=== PATIENT | female | born 1995 | race Caucasian/White ===

== ENCOUNTER 2018-11-07 22:21 | Emergency (ER) | payer MEDICAID ==
[~2018-11-07] VITALS: Ht 142.2 cm; Wt 54.5 kg
[~2018-11-07 22:21] MED LIST: ALBUTEROL SUL0.083 % IN; AMOXICILLIN500 MG OR; AMOXICILLIN500 MG PO; AUGMENTIN875TAB PO; BIRTH CONTROL PILLS; CETIRIZINE10 MG PO; DUONEB IN; FLOVENT HFA44 MCG IN; HOME NEBULIZER; MACRODANTIN100 MG OR; MEDDOSEPAK PO; MOTRIN400 MG OR; NAPROSYN500 MG PO; NO HOME MEDS; NYSTATIN100000 M3 TOP; PREDNISONE10 MG PO; PRENATA3 OR; PRENATABS OR; PROAIR HFA IN; SINGULAIR10 MG PO; SYMBICORT1 AE1 IN; TAM75CAP OR; TYLENOL325 MG OR; ULTRAM50 MG OR
[2018-11-07] MEDS ORDERED: PRE-NATAL PO (22:34)
[2018-11-07] MEDS ORDERED: AMOXICILLIN500 MG PO (23:08)
[2018-11-07 23:15] VITALS: BP 108/66
== END 2018-11-07 23:15 | disposition home or self-care (01) ==
LOC: ED 22:21
DX: O98.513 Other viral diseases complicating pregnancy, third trimester (principal); Z3A.30 30 weeks gestation of pregnancy; J02.0 Streptococcal pharyngitis; R05 Cough; M79.10 Myalgia, unspecified site; R09.81 Nasal congestion; R09.89 Other specified symptoms and signs involving the circulatory and respiratory systems

== ENCOUNTER 2019-02-23 07:34 | Emergency (ER) | payer MEDICAID ==
[~2019-02-23] VITALS: Ht 142.2 cm; Wt 45.0 kg
[~2019-02-23 07:34] MED LIST changes: +PRE-NATAL PO
[2019-02-23 09:06] LABS: HEMATOCRIT 40.6 % (37.0-47.0); HEMOGLOBIN 12.8 g/dl (12.0-16.0); IMMATURE GRANULOCYTES 0.3 % (0.0-5.0); MEAN CELL VOLUME 87.7 fL CALC (80.0-100.0); MEAN CORPUSCULAR HGB 27.6 pG CALC (26.0-32.0); MEAN CORPUSCULAR HGB CONC 31.5 g/L CALC (32.0-36.0); NEUT# 6.66 thou/uL (2.00-7.15); RED BLOOD COUNT 4.63 mill/uL (4.20-5.60); RED CELL DISTRI WIDTH 12.6 % (11.5-15.5)
[2019-02-23 09:07] LABS: URINE BILIRUBIN - DIPSTICK NEGATIVE (NEGATIVE); URINE BLOOD DIPSTICK NEGATIVE (NEGATIVE); URINE COLOR YELLOW; URINE GLUCOSE - DIPSTICK NEGATIVE (NEGATIVE); URINE KETONE TRACE mg/dL (NEGATIVE); URINE LEUK ESTERASE NEGATIVE (NEGATIVE); URINE NITRITE - DIPSTICK NEGATIVE (Negative); URINE PH 5.5 (4.5-8.0); URINE PROTEIN - DIPSTICK NEGATIVE (NEG-TRACE); URINE SPECIFIC GRAVITY >=1.030; URINE UROBILINOGEN - DIPSTICK 0.2 E.U./dL (0.2)
[2019-02-23] MEDS ORDERED: ONDANSETRON4 MG PO (09:22)
[2019-02-23] MEDS ORDERED: TORADOL PO (09:22)
[2019-02-23 09:32] VITALS: BP 114/72
== END 2019-02-23 09:33 | disposition home or self-care (01) ==
LOC: ED 07:34
PROVIDERS: Emergency Medicine
DX: B34.9 Viral infection, unspecified (principal); R10.9 Unspecified abdominal pain; R11.2 Nausea with vomiting, unspecified; R19.7 Diarrhea, unspecified

== ENCOUNTER 2022-05-01 23:16 | Emergency (ER) | payer SELFPAY ==
[~2022-05-01] VITALS: Ht 142.2 cm; Wt 59.0 kg
[~2022-05-01 23:16] MED LIST changes: +ONDANSETRON4 MG PO; +TORADOL PO
[2022-05-01 23:25] VITALS: BP 128/95
[2022-05-01] MEDS ORDERED: SYMBICORT 80-4.5MCG (23:29)
[2022-05-01] MEDS ORDERED: PROAIR HFA108 MCG/AC (23:30)
[2022-05-01 23:31] VITALS: BP 115/85
[2022-05-01 23:41] LABS: HEMATOCRIT 44.6 % (37.0-47.0); HEMOGLOBIN 14.4 g/dl (12.0-16.0); IMMATURE GRANULOCYTES 0.4 % (0.0-5.0); MEAN CELL VOLUME 88.3 fL CALC (80.0-100.0); MEAN CORPUSCULAR HGB 28.5 pG CALC (26.0-32.0); MEAN CORPUSCULAR HGB CONC 32.3 g/dL CAL (32.0-36.0); NEUT# 4.59 thou/uL (2.00-7.15); RED BLOOD COUNT 5.05 mill/uL (4.20-5.60); RED CELL DISTRI WIDTH 12.9 % (11.5-15.5)
[2022-05-01 23:57] LABS: ALBUMIN 4.3 g/dL (3.2-5.0); ALKALINE PHOSPHATASE 76 u/l (38-126); ANION GAP 18 (6-22 (CALC)); BUN 8 mg/dL (7-17); BUN/CREATININE RATIO 13 (12-20 (CALC)); CARBON DIOXIDE 22 mmol/l (22-30); CHLORIDE 105 mmol/l (95-108); CREATININE 0.6 mg/dL (0.5-1.0); GFR FOR AFR.AMER. > 60 ML/MIN (>=60 (CALC)); GFR OTHER RACES > 60 ML/MIN (>=60 (CALC)); SGOT/AST 28 u/l (14-36); SODIUM 141 mmol/l (137-146); TOTAL PROTEIN 7.4 g/dL (6.3-8.2)
[2022-05-02 00:03] LABS: BILIRUBIN, TOTAL 0.3 mg/dL (0.0-1.4)
[2022-05-02] MEDS ORDERED: ALBUTEROL SUL0.083 % IN (00:49)
[2022-05-02] MEDS ORDERED: MEDDOSEPAK PO (00:49)
[2022-05-02 00:50] VITALS: BP 115/85
== END 2022-05-02 00:50 | disposition home or self-care (01) | DRG 203 ==
LOC: ED 23:16
DX: J45.901 Unspecified asthma with (acute) exacerbation (principal)

== ENCOUNTER 2022-07-02 11:40 | Emergency (ER) | payer SELFPAY ==
[~2022-07-02] VITALS: Ht 142.2 cm; Wt 54.5 kg
[~2022-07-02 11:40] MED LIST changes: +PROAIR HFA108 MCG/AC; +SYMBICORT 80-4.5MCG
[2022-07-02 12:27] LABS: HEMATOCRIT 45.6 % (37.0-47.0); HEMOGLOBIN 14.6 g/dl (12.0-16.0); IMMATURE GRANULOCYTES 0.2 % (0.0-5.0); MEAN CELL VOLUME 87.2 fL CALC (80.0-100.0); MEAN CORPUSCULAR HGB 27.9 pG CALC (26.0-32.0); NEUT# 5.04 thou/uL (2.00-7.15); RED BLOOD COUNT 5.23 mill/uL (4.20-5.60); RED CELL DISTRI WIDTH 13.1 % (11.5-15.5)
[2022-07-02 12:38] LABS: ALBUMIN 4.7 g/dL (3.2-5.0); ALKALINE PHOSPHATASE 69 u/l (38-126); ANION GAP 13 (6-22 (CALC)); BUN 7 mg/dL (7-17); BUN/CREATININE RATIO 12 (12-20 (CALC)); CARBON DIOXIDE 26 mmol/l (22-30); CHLORIDE 105 mmol/l (95-108); CREATININE 0.6 mg/dL (0.5-1.0); GFR FOR AFR.AMER. > 60 ML/MIN (>=60 (CALC)); GFR OTHER RACES > 60 ML/MIN (>=60 (CALC)); POTASSIUM 4.3 mmol/l (3.5-5.1); SGOT/AST 25 u/l (14-36); SODIUM 140 mmol/l (137-146); TOTAL PROTEIN 8.3 g/dL (6.3-8.2)
[2022-07-02 12:44] LABS: BILIRUBIN, TOTAL 0.5 mg/dL (0.0-1.4)
[2022-07-02] MEDS ORDERED: PROAIR HFA108 MCG/AC PO (14:37)
[2022-07-02] MEDS ORDERED: PREDNISONE50 MG PO (14:37)
[2022-07-02] MEDS ORDERED: ZPAK PO (14:37)
[2022-07-02] MEDS ORDERED: MONTELUKAST SOD10 MG PO (14:37)
[2022-07-02] MEDS ORDERED: PULMICORT0.5 MG PO (14:37)
[2022-07-02 14:55] VITALS: BP 103/78
== END 2022-07-02 14:56 | disposition home or self-care (01) | DRG 203 ==
LOC: ED 11:40
PROVIDERS: Family Medicine
DX: J45.901 Unspecified asthma with (acute) exacerbation (principal); T48.6X6A Underdosing of antiasthmatics, initial encounter; Z91.128 Patient's intentional underdosing of medication regimen for other reason; Z20.822 Contact with and (suspected) exposure to COVID-19
CPT/HCPCS: J3475